=== PATIENT | male | born 1990 | race Caucasian/White ===

== ENCOUNTER 2018-01-09 21:59 | Emergency (ER) | payer OTHER ==
[~2018-01-09] VITALS: Ht 185.4 cm; Wt 102.1 kg
[2018-01-09] MEDS ORDERED: RX-TRAMADOL 50 MG (ULTRAM) TAB PPK#4 PO STA (23:11)
[2018-01-09] MEDS ORDERED: TRAM-42 PO (23:26)
--- NOTE | 2018-01-09 23:26 | ED Lower Extremity ---
General Chief Complaint: Lower Extremity Stated Complaint: R ANKLE INJ/WORK INJ Nursing Triage Note: right ankle pain/swelling Nursing Sepsis Screen: No Definite Risk Source: patient Exam Limitations: no limitations History of Present Illness Date Seen by Provider: Jan 09, 2018 Time Seen by Provider: 22:05 Initial Comments This 19-year-old gentleman presents to the emergency room with a right ankle injury after being struck in the ankle by a palate raised about 5 inches off the ground. The accident happened at work. He reports his foot was pushed underneath the palate bending his ankle in an unnatural position. He denies any other injury. He has been unable to bear weight on his ankle since the injury which happened shortly before arrival. Allergies and Home Medications Allergies Coded Allergies: No Known Drug Allergies (Unverified , 01/09/18) Home Medications Tramadol HCl 50 Mg Tablet, 50 MG PO Q6H PRN for PAIN-MODERATE TO SEVERE Prescribed by: BRENDA SEBASTIAN on 01/09/18 1285 Patient Home Medication List Home Medication List Reviewed: Yes Review of Systems Constitutional: no symptoms reported EENTM: no symptoms reported Respiratory: no symptoms reported Cardiovascular: no symptoms reported Gastrointestinal: no symptoms reported Genitourinary: no symptoms reported Musculoskeletal: see HPI Skin: no symptoms reported Psychiatric/Neurological: No Symptoms Reported Past Ngpubft-Gmmllh-Hsbqpf Hx Past Med/Social Hx: Reviewed Nursing Past Med/Soc Hx Patient Social History Alcohol Use: Denies Use Recreational Drug Use: No Smoking Status: Current Everyday Smoker Type Used: Cigarettes 2nd Hand Smoke Exposure: Yes Recent Foreign Travel: No Contact w/Someone Who Travel: No Recent Infectious Disease Expo: No Recent Hopitalizations: No Immunizations Up To Date Tetanus Booster (TDap): Unknown Seasonal Allergies Seasonal Allergies: Yes Past Medical History Surgeries: Yes (ing. hernia) Abdominal Respiratory: No Cardiac: No Neurological: No Genitourinary: No Gastrointestinal: No Musculoskeletal: No Endocrine: No HEENT: No Cancer: No Psychosocial: No Blood Disorders: No Physical Exam Vital Signs Vital Signs - First Documented 01/09/18 22:00 Temp 98.7 Pulse 81 Resp 18 B/P (MAP) 116/63 (80) Pulse Ox 100 O2 Delivery Room Air Capillary Refill : Less Than 3 Seconds Height, Weight, BMI Height: 6'1.00" Weight: 225lbs. oz. 102.888702rd; BMI Method:Stated General Appearance: WD/WN, no apparent distress HEENT: normal ENT inspection Cardiovascular: regular rate, rhythm, no edema, no murmur Respiratory: lungs clear, normal breath sounds, no respiratory distress Legs: bilateral leg non-tender, bilateral leg normal inspection, bilateral leg normal range of motion, bilateral leg no evidence of injury Knees: bilateral knee non-tender, bilateral knee normal inspection, bilateral knee normal range of motion, bilateral knee no evidence of injury Ankles: left ankle normal inspection, left ankle normal range of motion, left ankle no evidence of injury; right ankle bone tenderness, right ankle pain, right ankle swelling, right ankle other (tenderness and swelling over the medial malleolus) Feet: bilateral foot non-tender, bilateral foot normal inspection, bilateral foot normal range of motion, bilateral foot no evidence of injury; right foot other (distal sensation, pedal pulses, capillary refill, and range of motion in the toes intact.) Neurologic/Psychiatric: oven tender II-XII nml as tested, no motor/sensory deficits, alert, normal mood/affect, oriented x 3 Skin: normal color, warm/dry Progress/Results/Core Measures Results/Orders My Orders Orders - BRENDA FAIR MD Ankle, Right, 3 Views (01/09/18 22:12) Rx-Tramadol Hcl (Rx-Ultram) (01/09/18 23:11) Crutches (01/09/18 23:11) Steplite (01/09/18 23:11) Vital Signs/I&O 01/09/18 01/09/18 22:00 23:37 Temp 98.7 98.5 Pulse 81 79 Resp 18 18 B/P (MAP) 116/63 (80) 118/65 (82) Pulse Ox 100 99 O2 Delivery Room Air Room Air Blood Pressure Mean: 80 Progress Progress Note : Progress Note Patient was found to have a right medial malleolar fracture. He was dispensed with a take-home packet of tramadol. Crutches and a step light boot were also dispensed. Occupational health paperwork was completed. Departure Impression Primary Impression: Closed right ankle fracture Qualified Codes: S82.891A - Other fracture of right lower leg, initial encounter for closed fracture Disposition: HOME, SELF-CARE Condition: Improved Departure-Patient Inst. Decision time for Depature: 23:15 Referrals: NO,LOCAL PHYSICIAN (PCP/Family) Primary Care Physician Patient Instructions: Ankle Fracture (DC) Add. Discharge Instructions: Rest, elevation for the level of the heart, icing in 20 minute intervals, and compression with an Donal wrap may help with pain and swelling. Keep the boot on as much as possible. Do not bear weight on the right foot. Use crutches to ambulate. Follow-up with occupational health and orthopedics as soon as possible. Dr. Aranda's contact information has been listed below for your convenience. Use Tylenol (acetaminophen) up to 1000 mg every 6 hours as needed for pain. Add Ultram (tramadol) as prescribed for pain not controlled by Tylenol. Return to care if you have any questions or concerns. All discharge instructions reviewed with patient and/or family. Voiced understanding. Scripts Tramadol HCl (Ultram) 50 Mg Tablet 50 MG PO Q6H PRN for PAIN-MODERATE TO SEVERE, #20 TAB Prov: BRENDA FAIR MD 01/09/18 BRENDA FAIR MD Jan 09, 2018 23:26
[2018-01-09 23:37] VITALS: BP 118/65
--- NOTE | 2018-01-10 06:33 | Diagnostic Imaging Report ---
Clinical indication: Patient was at work when a piece of wood fell on ankle and twisted it. Patient complains of pain on the medial side. Exam: X-ray of the right ankle, 3 views. Comparison: None. Findings: There is a mildly distracted fracture involving the medial malleolus which is distracted by roughly 4 mm and demonstrates roughly 7 mm of anterior displacement of the distal fracture fragment. There is no other fracture or dislocation seen on this exam. Ankle mortise and syndesmotic joints otherwise unremarkable. There is mild hypertrophic calcaneal spurs at the plantar attachment. There is soft tissue swelling about the ankle. Impression: Displaced fracture of the medial malleolus, as described above. Dictated by: Dictated on workstation # [id number]
== END 2018-01-09 23:37 | disposition home or self-care (01) ==
LOC: ER 22:01
DX: S82.51XA Displaced fracture of medial malleolus of right tibia, initial encounter for closed fracture (principal); F17.210 Nicotine dependence, cigarettes, uncomplicated; Z98.890 Other specified postprocedural states; X58.XXXA Exposure to other specified factors, initial encounter; Y92.59 Other trade areas as the place of occurrence of the external cause; Y99.0 Civilian activity done for income or pay
CPT/HCPCS: 73610